=== PATIENT | female | born 1995 | race Caucasian/White ===

== ENCOUNTER 2017-01-20 18:04 | Emergency (ER) | payer BC, OTHER ==
[~2017-01-20] VITALS: Ht 162.6 cm; Wt 51.0 kg
[2017-01-20 18:06] VITALS: Ht 162.6 cm; Wt 51.0 kg
[2017-01-20] MEDS ORDERED: HYDROCODONE/APAP (5/325) TAB PO ONE (20:00)
--- NOTE | 2017-01-20 20:23 | RADRPT ---
PROCEDURE: XR Right Hand CLINICAL INDICATION: Thumb injury TECHNIQUE: PA, oblique, and lateral radiographs were submitted. COMPARISON: None FINDINGS: Osseous structures: There is a transverse nondisplaced fracture through the tip of the distal phalan x of the right thumb. The remaining visualized osseous elements appear intact. Joint spaces: are well maintained, with no significant spurring, erosion or joint effusion evident. Soft tissues: appear unremarkable. IMPRESSION: Nondisplaced fracture involving the tuft of the distal phalanx of the right thumb. Physician Dorothea Date Time Electronically viewed and signed by Physician Dorothea on 01/20/2017 20:23 /
[2017-01-20 20:30] VITALS: BP 125/96; PULSE 70
[2017-01-20] MEDS ORDERED: HYDR-906 PO (20:44)
[2017-01-20] MEDS ORDERED: IBUP-1542 PO (20:44)
--- NOTE | 2017-01-20 20:44 | ERD ---
ER Documentation Chief Complaint Date/Time DATE: 01/20/17 TIME: 20:40 Chief Complaint right thumb crushing injury (car door) HPI This patient is a 21-year-old female who is right-hand dominant and she slammed her right hand between a car door on accident today. She now has pain in her right thumb and a laceration through her nail. She has not taken any medication for pain. Her vaccinations are up-to-date. No numbness or tingling. ROS All systems reviewed and are negative except as per history of present illness. PMhx/Soc History of Surgery: No Anesthesia Reaction: No Hx Neurological Disorder: No Hx Respiratory Disorders: No Hx Cardiac Disorders: No Hx Psychiatric Problems: No Hx Miscellaneous Medical Probl: No Hx Alcohol Use: No Hx Substance Use: No Hx Tobacco Use: No Smoking Status: Never smoker FmHx Family History: No diabetes Physical Exam Vitals Vital Signs Date Time Temp Pulse Resp B/P Pulse Ox O2 Delivery O2 Flow Rate FiO2 01/20/17 20:30 70 125/96 01/20/17 18:06 98.8 102 16 127/82 99 Physical Exam INITIAL VITAL SIGNS: Reviewed by me GENERAL: Awake, alert and oriented x 4, well appearing, nontoxic, speaking in full sentences. No acute distress HEAD: Atraumatic RESPIRATORY: Clear to auscultation bilaterally. Symmetric chest wall rise. No wheezing or rales. No accessory muscle use. CV: Regular rate and rhythm. No murmurs, rubs, or gallops. EXTREMITIES: Right thumb has a laceration horizontally through the mid nailbed, she is able to wiggle her finger, no bony abnormalities, tender to palpation over the distal thumb Results 24 hrs Current Medications Medications (Trade) Dose Ordered Sig/Joann Route PRN Reason Start Time Stop Time Status Last Admin Dose Admin Acetaminophen/ Hydrocodone Bitart (Martha (5/325)) 1 tab ONCE ONCE PO 01/20/17 20:00 01/20/17 20:01 DC 01/20/17 19:43 Procedures/MDM Patient crushed her right thumb. She is neurovascular intact. She was given Martha for pain control x-ray was ordered and does show fracture of the distal thumb. Her nail bed is split however it is still intact and Is a barrier and therefore I decided to leave it on. I reviewed this with Dr. Chapin and he agrees. The finger was cleaned and dressed and placed in a metal finger splint she was given outpatient referral to orthopedics as well as prescription for pain medications. Patient counseled regarding my diagnostic impression and care plan. Prior to discharge all questions answered. Pt agrees with treatment plan and understands strict return precautions. Pt is instructed to follow up with primary care provider within 24-48 hours. Precautionary instructions provided including instructions to return to the ER if not improving or for any worsening or changing symptoms or concerns. Departure Diagnosis: Primary Impression: Thumb fracture Additional Impression: Laceration of nail bed of finger Condition: Stable PAM HAMLIN PA-C Jan 20, 2017 20:44
[2017-01-20] MEDS ORDERED: AMOX1TAB10 PO (20:45)
== END 2017-01-20 20:55 | disposition home or self-care (01) ==
LOC: FTE 18:04
DX: S62.524A Nondisplaced fracture of distal phalanx of right thumb, initial encounter for closed fracture (principal); S61.111A Laceration without foreign body of right thumb with damage to nail, initial encounter; W23.0XXA Caught, crushed, jammed, or pinched between moving objects, initial encounter; Y92.810 Car as the place of occurrence of the external cause
CPT/HCPCS: 29130; 73130; 99283; Z7610